=== PATIENT | female | born 1965 | race Caucasian/White ===

== ENCOUNTER 2022-01-11 10:02 | Outpatient (RCR) | payer OTHER, SELFPAY | END 2022-03-01 12:26 | disposition home or self-care (01) | PROVIDERS: PCP Family Medicine; Visit Provider Family Medicine | DX: M79.671 Pain in right foot (principal); M79.672 Pain in left foot; Z51.89 Encounter for other specified aftercare | CPT/HCPCS: 97161; 97760; 97763 ==

== ENCOUNTER 2023-10-12 09:24 | Outpatient (CLI) | payer OTHER, SELFPAY | END 2023-10-12 09:25 | disposition home or self-care (01) | LOC: NFLDREF 09:26 | PROVIDERS: PCP Family Medicine; Visit Provider Obstetrics & Gynecology | DX: R30.0 Dysuria (principal) | CPT/HCPCS: 87086 ==

== ENCOUNTER 2023-10-19 08:02 | Outpatient (CLI) | payer OTHER, SELFPAY ==
--- NOTE | 2023-10-19 08:00 | CRLHL7_ITS ---
For Patients: As a result of the Century Cures Act, medical imaging exams and procedure reports are released immediately into your electronic medical record. You may view this report before your referring provider. If you have questions, please contact your health care provider. INDICATION: Hematuria. TECHNIQUE: CT abdomen and pelvis urogram without and with 100 cc Isovue 370 IV contrast. Contrast images were obtained in the nephrographic and delayed phases. COMPARISON: None. FINDINGS: KIDNEYS: The unenhanced images demonstrate no kidney or ureteral stones. The kidneys are normal in caliber and demonstrate normal uptake and excretion of IV contrast. No solid masses. 9 millimeter simple cyst lower pole right kidney. The renal collecting systems and ureters are symmetrical, normal in caliber, and without evidence of mass or filling defect. URINARY BLADDER: The urinary bladder is normal in caliber and without evidence of mass, wall thickening, or inflammation. OTHER: Increased stool is present in the colon consistent with constipation. The liver is normal in caliber and attenuation. Spleen, pancreas, and adrenal glands are normal. No mass or adenopathy. Degenerative disc disease L4-5 and L5-S1 with discogenic sclerosis. 3.5 millimeter nodule in the right middle lobe. 4 millimeter nodule within the lateral right lung base. 3 millimeter nodule left lower lobe. Dependent atelectasis in the lung bases. Gallbladder is normal. Heterogeneous uterine parenchyma. Incidental cystic change associated with the sacrum. IMPRESSION: 1. Unremarkable CT urogram. No findings to explain hematuria. 2. Constipation. Tiny bilateral pulmonary nodules. Optional 1 year follow-up CT chest suggested. Please note that all CT scans at this facility use dose modulation, iterative reconstruction, and/or weight-based dosing when appropriate to reduce radiation dose to as low as reasonably achievable. Dictated by Allan Kennedy MD @ 10/19/2023 1:22:56 PM (Electronically Signed)
== END 2023-10-19 08:03 | disposition home or self-care (01) ==
LOC: CT 08:03
PROVIDERS: PCP Family Medicine; Visit Provider Obstetrics & Gynecology
DX: R31.9 Hematuria, unspecified (principal); R91.8 Other nonspecific abnormal finding of lung field
CPT/HCPCS: 74178; Q9967

== ENCOUNTER 2024-05-08 10:49 | Outpatient (CLI) | payer BC, SELFPAY ==
--- NOTE | 2024-05-08 10:45 | CRLHL7_ITS ---
For Patients: As a result of the Century Cures Act, medical imaging exams and procedure reports are released immediately into your electronic medical record. You may view this report before your referring provider. If you have questions, please contact your health care provider. INDICATION: Postmenopausal bleeding. History of endometrial ablation. TECHNIQUE: Transabdominal and transvaginal scanning was performed. Transvaginal scanning was performed to optimally evaluate the endometrium and adnexa. Ovarian blood flow was evaluated with color-flow and pulsed Doppler. COMPARISON: Pelvic ultrasound of 06/12/2017 FINDINGS: The uterus is normal in size and shape. The uterus measures 8.5 x 3.1 x 3.6 cm. No myometrial mass is evident. The postmenopausal endometrial stripe is mildly thickened at 6 mm. The ovaries are normal in size. The right ovary measures 2.6 x 2.1 x 1.9 cm and left 2.6 x 2.0 x 1.7 cm. Ovarian blood flow is demonstrated with color-flow and pulsed Doppler. No adnexal mass is evident. No free fluid is demonstrated. IMPRESSION: Mild thickening of the postmenopausal endometrial stripe at 6 mm Dictated by Shaka Toussaint MD @ 05/09/2024 12:51:07 PM (Electronically Signed)
== END 2024-05-08 10:50 | disposition home or self-care (01) ==
LOC: US 10:49
PROVIDERS: PCP Family Medicine; Visit Provider Obstetrics & Gynecology
DX: N95.0 Postmenopausal bleeding (principal); R93.89 Abnormal findings on diagnostic imaging of other specified body structures
CPT/HCPCS: 76830; 76856

== ENCOUNTER 2024-07-10 07:22 | Day surgery (SDC) | payer BC, SELFPAY ==
[2024-07-10] VITALS (13 sets, daily range): BP systolic 105–128; BP diastolic 66–99; PULSE 34–54; RESP 12–16; TEMP 36.4–36.7; O2SAT 96–100; BMI 26.0
[2024-07-10] MEDS: SODIUM CHLORIDE 0.9 % (FLUSH) 10 ML SYRINGE IVF (07:40)
[2024-07-10] MEDS: 0.9 % SODIUM CHLORIDE 500 ML 500 ML 100 ML IV (07:40)
--- NOTE | 2024-07-10 08:23 | W.PM.H&PU ---
History & Physical Update History & Physical Update H&P Reviewed and patient assessed: No changes noted
--- NOTE | 2024-07-10 09:37 | P.ANES_ITS ---
Anesthesia Charges Start Date/Time Anesthesia Start Date: 07/10/24 Anesthesia Start Time: 08:25 Stop Date/Time Anesthesia Stop Date: 07/10/24 Anesthesia Stop Time: 09:36 Coding CPT Codes CPT Codes: ANESTH HYSTEROSCOPE/GRAPH - 76595 ([id number]) QK - SUPERVISOR HIDE HOUSE 2-4 CNCRNT ANES PROC, QX - AGRICULTURAL PRODUCE PACKER SVC W/ MD MED DIRECTION, P2 - PATIENT W/MILD SYST DISEASE
--- NOTE | 2024-07-10 09:37 | P.ANES_ITS ---
Anesthesia Charges Start Date/Time Anesthesia Start Date: 07/10/24 Anesthesia Start Time: 08:25 Stop Date/Time Anesthesia Stop Date: 07/10/24 Anesthesia Stop Time: 09:36 Coding CPT Codes CPT Codes: ANESTH HYSTEROSCOPE/GRAPH - 96411 ([id number]) P2 - PATIENT W/MILD SYST DISEASE, QK - SKIVER HAND 2-4 CNCRNT ANES PROC, QX - MIDDLE CARD TENDER SVC W/ MD MED DIRECTION
--- NOTE | 2024-07-10 09:37 | W.ANESCHARGE ---
Anesthesia Charges Start Date/Time Anesthesia Start Date: 07/10/24 Anesthesia Start Time: 08:25 Stop Date/Time Anesthesia Stop Date: 07/10/24 Anesthesia Stop Time: 09:36 Coding CPT Codes CPT Codes: ANESTH HYSTEROSCOPE/GRAPH - 08660 ([id number]) P2 - PATIENT W/MILD SYST DISEASE, QK - WELDER GAS AUTOMATIC 2-4 CNCRNT ANES PROC, QX - AREA FORESTER SVC W/ MD MED DIRECTION
--- NOTE | 2024-07-10 09:37 | W.ANESCHARGE ---
Anesthesia Charges Start Date/Time Anesthesia Start Date: 07/10/24 Anesthesia Start Time: 08:25 Stop Date/Time Anesthesia Stop Date: 07/10/24 Anesthesia Stop Time: 09:36 Coding CPT Codes CPT Codes: ANESTH HYSTEROSCOPE/GRAPH - 58093 ([id number]) QK - BENCH LAY OUT TECHNICIAN 2-4 CNCRNT ANES PROC, QX - KNUCKLE BENDER SVC W/ MD MED DIRECTION, P2 - PATIENT W/MILD SYST DISEASE
--- NOTE | 2024-07-10 09:40 | P.GYNPRC_ITS ---
Procedure Note Date of procedure: 07/10/24 Will [facility] bill your pro fee for this procedure?: Yes Pre-op diagnosis: Postmenopausal bleeding Thickened endometrial stripe Post-op diagnosis: Partially obliterated endometrial cavity Tiny endometrial polyp Otherwise atrophic appearing endometrium Procedure: Hysteroscopy Polypectomy Dilation and curettage with ultrasound guidance Anesthesia: MAC and local Complications: None Surgeon: Afua La MD Windows Software Engineer: Aurelia Sterling Estimated blood loss (mL): 5 IV fluids (mL): 400 Urine Output (mL): 60 Pathology: specimen obtained, sent to pathology (endometrial curettings) Condition: stable Disposition: same day Findings: 1. Upon pelvic exam under anesthesia, the cervix and vagina were normal in appearance. Uterus was mobile and anteverted, of normal size and texture. There were no palpable adnexal masses. 2. Upon hysteroscopy, survey of the endocervix was normal. Survey of the endometrial cavity revealed partial obliteration of the cavity with the remaining cavity clinical shaped and deviated to the left, exposing only the left tubal ostium. There is a tiny endometrial polyp adjacent to this tubal ostium. Otherwise, the remaining endometrium appeared thin. 3. Ultrasound guidance was performed with hysteroscope in place, in an attempt to confirm that there was no visible endometrial cavity that I had not entered. There appeared to be none, and and remaining endometrium appeared thin. Procedure Description: Procedure in detail: Patient was taken to the operating room with IV running. She was positioned in dorsal lithotomy position with her legs fully supported in Yellofin stirrups. Monitored anesthesia care was administered. She was prepped and draped in the usual sterile fashion. Exam under anesthesia was performed for the above-noted findings. Bladder was straight catheterized. Speculum was inserted. Cervix visualized and grasped along the anterior lip with a single-tooth tenaculum. Cervix was serially dilated to accommodate the TRUCLEAR hysteroscope. This was assembled with saline inflow and outflow in place. The line was flushed of bubbles. The hysteroscope was advanced through the cervix into the endometrial cavity for the above noted findings. The tissue morcellator was then inserted through the operating channel. Window lock was performed. Under direct visualization, the endometrial cavity was circumferentially curetted with the tissue morcellator. The soft tissue morcellator was used to make several passes on the medial wall of the obliterated cavity, widening it somewhat but not resulting in the discovery of any pockets of endometrium. The bladder was backfilled with 150 cc of saline to aid in ultrasonic visualization of the uterus. Bedside ultrasound was performed by Dr. Amira Encinas. Intraoperative images showed no additional endometrial cavities that were not filled with saline. The endometrial stripe appeared thin. The hysteroscope and morcellator were then removed from the uterus. Tenaculum was removed from the anterior lip of cervix. Hemostasis was noted. Bladder was again drained by straight catheterization. Patient tolerated procedure well. She was taken to recovery area in stable condition.
[2024-07-10 09:44] LABS: Appearance Urine Clear (Clear); Bilirubin Urine Negative (Negative); Blood Urine 1+ (Negative); Color Urine Yellow (Yellow); Glucose Urine Negative (Negative); Ketones Urine Negative (Negative); Leukocyte Esterase Urine Negative (Negative); Nitrite Urine Negative (Negative); Protein Urine Negative (Negative); Specific Gravity Urine 1.015 (1.000-1.030); Urobilinogen Urine 0.2 (0.2-1.0); pH Urine 7.5 (5.0-8.5)
[2024-07-10 10:06] LABS: Squamous Epithelial Cell Urine Few (None-Few); WBC Urine 0-2 (0-5)
--- NOTE | 2024-07-10 10:31 | SUR.PHASEII ---
MDA aware of patients heart rate in mid 30's in Phase 2, continue to monitor.
--- NOTE | 2024-07-10 10:53 | SUR.PHASEII ---
MDA aware of patients HR ranging from 34-40 with patient at rest. Continue to monitor.
--- NOTE | 2024-07-10 11:12 | SUR.PHASEII ---
Patient up to void with assistance at 0955. Patient requests to rest.
--- NOTE | 2024-07-10 11:21 | SUR.PHASEII ---
Patient shared history from health monitor watch fernando heart rate from last 2 weeks. Lowest heart rate recorded is 42 BPM per patients monitor.
--- NOTE | 2024-07-10 12:21 | SUR.PHASEII ---
MDA updated with patients Heart rate which ranges from 46-54. OK to discharge. Patient instructed to call 911 for any medical emergencies- chest pain, shortness of breath, arm, jaw or back pain.
== END 2024-07-10 12:25 | disposition home or self-care (01) ==
PROVIDERS: PCP Family Medicine; Visit Provider Obstetrics & Gynecology
PROC: 0UDB8ZZ Extraction of Endometrium, Via Natural or Artificial Opening Endoscopic (ICD-10-PCS; CPT 58558; principal; 2024-07-10 08:30)
DX: N95.0 Postmenopausal bleeding (principal); R93.89 Abnormal findings on diagnostic imaging of other specified body structures; N84.0 Polyp of corpus uteri
CPT/HCPCS: 58558; 00952; 36415; 76998; 81001; 86850; 86900; 86901; 88305; C1782; J1885; J2250; J2704; J3010; J3490; J7030

== ENCOUNTER 2024-07-30 13:37 | Outpatient (CLI) | payer BC, SELFPAY ==
--- NOTE | 2024-07-30 13:30 | CRLHL7_ITS ---
For Patients: As a result of the Century Cures Act, medical imaging exams and procedure reports are released immediately into your electronic medical record. You may view this report before your referring provider. If you have questions, please contact your health care provider. XR DXA BONE MINERAL DENSITY (BMD) Current height (in): 64.0. Weight (lb): 145.0. Menopause age: 56. Ethnicity: White. Reason for exam: Menopause. 1. Have you had a previous hip or vertebral fracture? No. 2. Have you had any fractures during your adult life which did not result from significant trauma (e.g., auto accident)? No. 3. Did either of your parents have a hip fracture? No. 4. Do you smoke? No. 5. Have you ever taken Glucocorticoids? No. 6. Do you have rheumatoid arthritis? No. 7. Do you have secondary osteoporosis? No. 8. Do you drink 3 or more alcoholic drinks per day? No. 9. Are you being treated for osteoporosis? No. 10. Have you ever taken any of the following medications: Actonel, Evista, Fosamax, Miacalcin, Reclast, Boniva, Forteo, HRT (i.e. estrogen/hormone therapy), Protelos, Prolia, Vitamin D, Calcium, other ??? please specify. ANSWER: Yes; calcium. 11. Do you have any of the following medical conditions: Anorexia or bulimia, asthma or emphysema, end stage renal disease, hyperparathyroidism, any seizure disorders, cancer, inflammatory bowel diseases, hysterectomy, other ??? please specify. ANSWER: No. 12. What was your maximum height (inches)? 64. 13. Do you perform weight bearing exercise regularly? No. 14. Do you regularly consume dairy products? No. 15. Do you drink caffeinated beverages? Yes. 16. At what age did your period start? 15. 17. Are you premenopausal? No. 18. How many full-term pregnancies have you had? 2. 19. Have you ever missed your period for more than 6 months in a row (not including or menopause)? No. TECHNIQUE: Bone mineral density study was performed using the [employer]. FINDINGS: The results of the study expressed as bone mineral density (BMD) are as follows: Lumbar spine L1 to L4: BMD: 0.957 g/cm2. T-score: -0.8. Z-score: 0.5 Neck Left: BMD: 0.833 g/cm2. T-score: -0.1. Z-score: 1.1 Right: BMD: 0.833 g/cm2. T-score: -0.1. Z-score: 1.1 Total Left: BMD: 0.997 g/cm2. T-score: 0.4. Z-score: 1.3 Right: BMD: 1.040 g/cm2. T-score: 0.8. Z-score: 1.7 IMPRESSION: Normal bone density. Guillaume Thakur M.D. Diagnostic Radiologist [email or web address] Transcribed: 2:46 pm DW/Dictated by: Guillaume Thakur MD @ 07/31/2024 9:10:00 AM (Electronically Signed)
== END 2024-07-30 13:38 | disposition home or self-care (01) ==
LOC: RAD 13:37
PROVIDERS: PCP Family Medicine; Visit Provider Obstetrics & Gynecology
DX: N95.1 Menopausal and female climacteric states (principal)
CPT/HCPCS: 77080